=== PATIENT | female | born 1990 | race Two or more races ===

== ENCOUNTER 2017-08-01 01:20 | Emergency (ER) | payer SELFPAY ==
[~2017-08-01] VITALS: Ht 157.5 cm; Wt 74.8 kg
[2017-08-01 02:10] LABS: EOSINOPHIL (%) 1.1 % (0-5); EOSINOPHIL COUNT 0.1 K/uL (0-0.3); HEMATOCRIT 36.6 % (36.0-46.0); IMMATURE GRANULOCYTE (%) 0.4 % (0.0-0.7); INSTRUMENT ABS NEUTROPHIL CT 6.4 K/uL; LYMPHOCYTE COUNT 2.5 K/uL (1.0-2.8); MCH 29.5 PG (29.0-34.0); MCHC 33.6 G/DL (30.0-36.0); MCV 87.8 FL (83-99); MEAN PLAT.VOLUME 10.6 uM^3 (9.5-12.4); MONOCYTE (%) 6.6 % (3-12); MONOCYTE COUNT 0.6 K/uL (0-0.8); NEUTROPHIL (%) 66.1 % (45-76); NEUTROPHIL COUNT 6.4 K/uL (1.8-6.4); PLATELET COUNT 205 K/uL (156-360); RBC DIS.WIDTH-CV 12.4 % (11.8-14.6); RBC DIS.WIDTH-SD 39.9 % (39-53); RED BLOOD COUNT 4.17 M/uL (3.80-5.20); WHITE BLOOD COUNT 9.7 K/uL (4.1-10.2)
[2017-08-01 02:25] LABS: CHLORIDE 106 mEq/L (99-109); POTASSIUM 3.9 mEq/L (3.7-5.4); SODIUM 140 mEq/L (136-147)
[2017-08-01 02:27] LABS: GLUCOSE 104 mg/dL (70-99)
[2017-08-01 02:28] LABS: ANION GAP 10 MEQ/L (2-14)
[2017-08-01 02:29] LABS: TOTAL BILIRUBIN 0.7 mg/dL (0.0-1.0)
[2017-08-01 02:30] LABS: ALKALINE PHOSPHATASE 63 IU/L (3-129)
[2017-08-01 02:31] LABS: GFR ESTIMATE (CALCULATED) > 59 mL/min/
[2017-08-01 02:32] LABS: UREA NITROGEN (BUN) 17 mg/dL (9-23)
[2017-08-01 03:46] LABS: ADD MIUA? YES; BILIRUBIN NEGATIVE; BLOOD LARGE; COLOR STRAW ((YELLOW)); GLUCOSE (STRIP) NEGATIVE; KETONES NEGATIVE; LEUKOCYTES NEGATIVE; NITRITE NEGATIVE; PROTEIN (STRIP) NEGATIVE; SPECIFIC GRAVITY 1.011 (1.000-1.030); UROBILINOGEN 0.2 MG/DL (0.2-1.0)
[2017-08-01 03:49] LABS: BACTERIA NONE SEEN /HPF; EPITHELIAL CELLS RARE /HPF; MUCUS TRACE /LPF; RED BLOOD CELLS TNTC /HPF (0-5); WHITE BLOOD CELLS 0-5 /HPF (0-5)
[2017-08-01] MEDS ORDERED: MOTRIN600 MG PO (05:42)
[2017-08-01] MEDS ORDERED: PERCOCET 5/31 TABLET PO (05:42)
[2017-08-01 05:57] VITALS: BP 131/76
== END 2017-08-01 06:00 | disposition home or self-care (01) ==
LOC: EME 01:20
PROVIDERS: Emergency Medicine
DX: O03.4 Incomplete spontaneous abortion without complication (principal)
CPT/HCPCS: 76801; 80053; 81003; 84702; 85025; 86900; 86901; 99281; 99285; J1885; J7030

== ENCOUNTER → 2018-05-25 | Outpatient (CLI) | payer SELFPAY ==
[~2018-05-25] MED LIST: MOTRIN600 MG PO; PERCOCET 5/31 TABLET PO
== END | disposition home or self-care (01) ==
LOC: RAD 13:00
DX: Z3A.21 21 weeks gestation of pregnancy (principal)
CPT/HCPCS: 76805

== ENCOUNTER 2018-06-02 17:22 | Emergency (ER) | payer SELFPAY ==
[~2018-06-02] VITALS: Ht 152.4 cm; Wt 90.3 kg
[2018-06-02 18:21] LABS: HEMATOCRIT 33.2 % (36.0-46.0); HEMOGLOBIN 11.5 G/DL (11.9-15.5); MCH 30.6 PG (29.0-34.0); MCHC 34.6 G/DL (30.0-36.0); MCV 88.3 FL (83-99); PLATELET COUNT 216 K/uL (156-360); RBC DIS.WIDTH-CV 13.1 % (11.8-14.6); RED BLOOD COUNT 3.76 M/uL (3.80-5.20); WHITE BLOOD COUNT 8.8 K/uL (4.1-10.2)
[2018-06-02 18:21] LABS: APPEARANCE CLEAR ((CLEAR)); BILIRUBIN NEGATIVE; BLOOD NEGATIVE; COLOR COLORLESS ((YELLOW)); GLUCOSE (STRIP) NEGATIVE; KETONES NEGATIVE; LEUKOCYTES NEGATIVE; NITRITE NEGATIVE; PROTEIN (STRIP) NEGATIVE; SPECIFIC GRAVITY 1.005 (1.000-1.030); UROBILINOGEN 0.2 MG/DL (0.2-1.0)
[2018-06-02 18:42] LABS: ALBUMIN 3.3 g/dL (3.2-4.8); CHLORIDE 106 mEq/L (99-109); POTASSIUM 3.9 mEq/L (3.7-5.4); SODIUM 137 mEq/L (136-147)
[2018-06-02 18:44] LABS: GLUCOSE 68 mg/dL (70-99); TOTAL PROTEIN 6.3 g/dL (6.4-8.3)
[2018-06-02 18:46] LABS: TOTAL BILIRUBIN 0.4 mg/dL (0.0-1.0)
[2018-06-02 18:48] LABS: ALKALINE PHOSPHATASE 78 IU/L (3-129); CREATININE 0.5 mg/dL (0.6-1.3); GFR ESTIMATE (CALCULATED) > 59 mL/min/
[2018-06-02 18:49] LABS: AST (GOT) 10 IU/L (2-34); UREA NITROGEN (BUN) 7 mg/dL (9-23)
[2018-06-02 18:51] LABS: ALT (GPT) 14 IU/L (3-49)
[2018-06-02] MEDS ORDERED: MIRALAX17 GM PO (21:00)
[2018-06-02 21:10] VITALS: BP 100/56
== END 2018-06-02 21:12 | disposition home or self-care (01) ==
LOC: EME 17:22
PROVIDERS: Physician Assistant
DX: O26.892 Other specified pregnancy related conditions, second trimester (principal); K59.00 Constipation, unspecified; Z3A.22 22 weeks gestation of pregnancy
CPT/HCPCS: 80053; 81003; 85027; 99281; 99283